=== PATIENT | female | born 1960 | race Caucasian/White ===

== ENCOUNTER 2016-12-24 10:31 | Emergency (ER) | payer OTHER ==
[~2016-12-24] VITALS: Ht 167.6 cm; Wt 86.2 kg
[2016-12-24 10:41] VITALS: BP 132/80
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
[2016-12-24] MEDS ORDERED: CYCLOBENZAPRINE10 M1 PO (11:41)
[2016-12-24] MEDS ORDERED: MELOXICAM15 M1 PO (11:41)
[2016-12-24] MEDS ORDERED: METFORMIN HCL500 M3 PO (11:49)
[2016-12-24] MEDS ORDERED: LISINOPRIL-HCT1 EAC2 PO (11:49)
[2016-12-24] MEDS ORDERED: ATORVASTATIN CA40 M1 PO (11:50)
== END 2016-12-24 11:54 ==
LOC: ERH 10:31
DX: S16.1XXA Strain of muscle, fascia and tendon at neck level, initial encounter (principal); V54.5XXA Driver of pick-up truck or van injured in collision with heavy transport vehicle or bus in traffic accident, initial encounter; Y93.9 Activity, unspecified; Y92.415 Exit ramp or entrance ramp of street or highway as the place of occurrence of the external cause